=== PATIENT | female | born 2000 | race African-American/Black ===

== ENCOUNTER 2019-04-05 03:55 | Emergency (ER) | payer SELFPAY ==
[~2019-04-05] VITALS: Ht 162.6 cm; Wt 59.9 kg
[2019-04-05] MEDS ORDERED: fentaNYL PF VIAL 100 MCG/2 ML VIAL IV ONE (04:45)
[2019-04-05 04:46] LABS: BASO % 0 % (0-3); EOS # 0.1 x10^3/uL (0.0-0.7); EOS % 1 % (0-3); HEMATOCRIT 35.3 % (36.0-47.0); HEMOGLOBIN 11.7 g/dL (12.0-15.5); LYMPH # 3.2 x10^3/uL (1.0-4.8); LYMPH % 34 % (24-48); MEAN CORPUSCULAR HEMOGLOBIN 30 pg (25-35); MEAN CORPUSCULAR HGB CONC 33 g/dL (31-37); MEAN CORPUSCULAR VOLUME 92 fL (79-100); MONO # 0.7 x10^3/uL (0.0-1.1); MONO % 7 % (0-9); NEUT # 5.4 x10^3uL (1.8-7.7); NEUT % 58 % (31-73); PLATELET COUNT 201 x10^3/uL (140-400); RED BLOOD COUNT 3.85 x10^6/uL (3.50-5.40); WHITE BLOOD COUNT 9.3 x10^3/uL (4.0-11.0)
[2019-04-05] MEDS ORDERED: IV NORMAL SALINE 1000ML BAG 1,000 ML IV ONE (05:00)
[2019-04-05 05:04] LABS: CALCIUM 9.2 mg/dL (8.5-10.1); CREATININE 0.7 mg/dL (0.6-1.0); GFR 106.7; POTASSIUM 3.9 mmol/L (3.5-5.1)
[2019-04-05 05:09] LABS: ALBUMIN 3.1 g/dL (3.4-5.0); ALBUMIN/GLOBULIN RATIO 0.7 (1.0-1.7); TOTAL BILIRUBIN 0.1 mg/dL (0.2-1.0); TOTAL PROTEIN 7.3 g/dL (6.4-8.2)
--- NOTE | 2019-04-05 05:33 | PHYS DOC ---
Past Medical History Past Medical History: No Pertinent History (ZAIN WELLS MD) Past Surgical History: No Surgical History (ZAIN WELLS MD) Alcohol Use: None Drug Use: None (ZAIN WELLS MD) Adult General Chief Complaint Chief Complaint: ABDOMINAL PAIN IN HPI HPI Patient is a 18 year old f p/w ruq /epigastric pain.radiates to chest went to [facility] had neg PE study on friday. pain got better, it came back tonight after eating a gyro. she threw it up pain now severe sharp radiates to back as well. pt is 14 weeks pregannt, no lower abdo pain, no vaginal bleeding or discharge. no fever PT had neg u/a at the outside hospital as well. (ZAIN WELLS MD) Review of Systems Review of Systems Constitutional: Denies fever or chills [] Eyes: Denies change in visual acuity, redness, or eye pain [] HENT: Denies nasal congestion or sore throat [] Respiratory: Denies cough or shortness of breath [] Cardiovascular: No additional information not addressed in HPI [] Integument: Denies rash or skin lesions [] Neurologic: Denies headache, focal weakness or sensory changes [] Endocrine: Denies polyuria or polydipsia [] All other systems were reviewed and found to be within normal limits, except as documented in this note. (ZAIN WELLS MD) Current Medications Current Medications Current Medications Medications (Trade) Dose Ordered Sig/Quinn Start Time Stop Time Status Last Admin Dose Admin Fentanyl Citrate (Fentanyl 2ml Vial) 50 mcg 1X ONCE 04/05/19 04:45 04/05/19 04:46 DC 04/05/19 05:06 50 MCG Sodium Chloride 1,000 ml @ 1,000 mls/hr 1X ONCE 04/05/19 05:00 04/05/19 05:59 DC 04/05/19 05:06 1,000 MLS/HR (REJI SMITH MD) Allergies Allergies Allergies Coded Allergies Type Severity Reaction Last Updated Verified No Known Drug Allergies 04/05/19 No (REJI SMITH MD) Physical Exam Physical Exam Constitutional: Well developed, well nourished,moderate distress, pt is sweaty and appears uncomfortable HENT: Normocephalic, atraumatic, bilateral external ears normal, oropharynx moist, no oral exudates, nose normal. [] Eyes: PERRLA, EOMI, conjunctiva normal, no discharge. [] Neck: Normal range of motion, no tenderness, supple, no stridor. [] Cardiovascular:Heart rate regular rhythm, no murmur [] Lungs & Thorax: Bilateral breath sounds clear to auscultation [] Abdomen: Bowel sounds normal, soft, ruq ttp and epigastric ttp Skin: Warm, dry, no erythema, no rash. [] Back: No tenderness, no CVA tenderness. [] Extremities: No tenderness, no cyanosis, no clubbing, ROM intact, no edema. [] Neurologic: Alert and oriented X 3, normal motor function, normal sensory function, no focal deficits noted. [] Psychologic: Affect normal, judgement normal, mood normal. [] (ZAIN WELLS MD) Current Patient Data Vital Signs Vital Signs Date Time Temp Pulse Resp B/P (MAP) Pulse Ox O2 Delivery O2 Flow Rate FiO2 04/05/19 05:43 60 107/58 (74) 100 Room Air 04/05/19 04:03 97.4 15 97.4 (REJI SMITH MD) Lab Values Laboratory Tests Test 04/05/19 04:35 White Blood Count 9.3 x10^3/uL (4.0-11.0) Red Blood Count 3.85 x10^6/uL (3.50-5.40) Hemoglobin 11.7 g/dL (12.0-15.5) L Hematocrit 35.3 % (36.0-47.0) L Mean Corpuscular Volume 92 fL (79-100) Mean Corpuscular Hemoglobin 30 pg (25-35) Mean Corpuscular Hemoglobin Concent 33 g/dL (31-37) Red Cell Distribution Width 14.0 % (11.5-14.5) Platelet Count 201 x10^3/uL (140-400) Neutrophils (%) (Auto) 58 % (31-73) Lymphocytes (%) (Auto) 34 % (24-48) Monocytes (%) (Auto) 7 % (0-9) Eosinophils (%) (Auto) 1 % (0-3) Basophils (%) (Auto) 0 % (0-3) Neutrophils # (Auto) 5.4 x10^3uL (1.8-7.7) Lymphocytes # (Auto) 3.2 x10^3/uL (1.0-4.8) Monocytes # (Auto) 0.7 x10^3/uL (0.0-1.1) Eosinophils # (Auto) 0.1 x10^3/uL (0.0-0.7) Basophils # (Auto) 0.0 x10^3/uL (0.0-0.2) Sodium Level 139 mmol/L (136-145) Potassium Level 3.9 mmol/L (3.5-5.1) Chloride Level 102 mmol/L (98-107) Carbon Dioxide Level 26 mmol/L (21-32) Anion Gap 11 (6-14) Blood Urea Nitrogen 11 mg/dL (7-20) Creatinine 0.7 mg/dL (0.6-1.0) Estimated GFR (Cockcroft-Gault) 106.7 BUN/Creatinine Ratio 16 (6-20) Glucose Level 124 mg/dL (70-99) H Calcium Level 9.2 mg/dL (8.5-10.1) Total Bilirubin 0.1 mg/dL (0.2-1.0) L Aspartate Amino Transferase (AST) 18 U/L (15-37) Alanine Aminotransferase (ALT) 22 U/L (14-59) Alkaline Phosphatase 45 U/L (46-116) L Total Protein 7.3 g/dL (6.4-8.2) Albumin 3.1 g/dL (3.4-5.0) L Albumin/Globulin Ratio 0.7 (1.0-1.7) L Lipase 170 U/L (73-393) Laboratory Tests 04/05/19 04:35 Laboratory Tests 04/05/19 04:35 (REJI SMITH MD) EKG EKG [] (ZAIN WELLS MD) Radiology/Procedures Radiology/Procedures [] (ZAIN WELLS MD) Course & Med Decision Making Course & Med Decision Making Pertinent Labs and Imaging studies reviewed. (See chart for details) []18 yo f 14 weeks p/w ruq pain. had neg PE study at outside hosptial eval for biliary process. u/s pelvis: shows intrauterine estimated gestational age of 14 weeks and 3 days positive heartbeat. Maternal ovaries are obscured. Lab interpretation looked essentially normal (ZAIN WELLS MD) Course & Med Decision Making Abdominal ultrasound reported normal gallbladder and intrauterine at 14 weeks and 2 days without abnormal finding. Patient felt better after treatment given earlier in ER. Plan discharge patient home with diagnosis of abdominal pain in and nausea and vomiting. (REJI SMITH MD) Dragon Disclaimer Dragon Disclaimer This electronic medical record was generated, in whole or in part, using a voice recognition dictation system. (ZAIN WELLS MD) Departure Departure Impression: Primary Impression: Abdominal pain during Additional Impression: Nausea and vomiting Disposition: HOME, SELF-CARE (At 0617) Condition: IMPROVED Referrals: NO PCP (PCP) Patient Instructions: Abdominal Pain During , Diet - Hyperemesis Gravidarum, Hyperemesis Gravidarum Additional Instructions: Drink plenty of liquids Follow-up with your primary care physician in 3-5 days Return to ER if not getting better Scripts Ondansetron Hcl (ZOFRAN) 4 Mg Tablet 1 TAB PO PRN Q6-8HRS for nausea, #12 TAB Prov: REJI SMITH MD 04/05/19 Problem Qualifiers Primary Impression: Abdominal pain during Trimester: second trimester Qualified Codes: O26.892 - Other specified related conditions, second trimester; R10.9 - Unspecified abdominal pain Additional Impression: Nausea and vomiting Vomiting type: unspecified Vomiting Intractability: unspecified Qualified Codes: R11.2 - Nausea with vomiting, unspecified ZAIN WELLS MD Apr 05, 2019 05:32 REJI SMITH MD Apr 05, 2019 06:18
[2019-04-05 06:13] VITALS: BP 110/59
[2019-04-05] MEDS ORDERED: ONDA4TAB7 PO (06:21)
--- NOTE | 2019-04-05 23:50 | RAD ---
Roxi Wernerntosh INDICATION : Right upper quadrant pain COMPARISON: None TECHNIQUE: Multiple ultrasound images obtained through the abdomen in grayscale and color. FINDINGS: Liver: Mildly echogenic. This is a questionable finding but mild fatty infiltration not excluded. Gallbladder: Questionable minimal internal echoes dependently. Could be artifactual in nature but gallbladder sludge or tiny stones would be difficult to exclude given this finding. There is no evidence of large gallstones or gallbladder wall thickening. IVC: Partially distended at level of liver. Common Bile Duct: 2 mm. Pancreas: Only partially seen without definite adjacent fluid collection. Right Kidney: No hydronephrosis. IMPRESSION: 1. No evidence of right-sided hydronephrosis or dilation of the common bile duct. Electronically signed by: Raulito Horne MD (04/05/2019 11:47 PM) [facility]
--- NOTE | 2019-04-05 23:51 | RAD ---
INDICATION: Right-sided pain in COMPARISON: None. TECHNIQUE: Grayscale and color ultrasound images uterus and adnexa. Transabdominal images obtained FINDINGS: The maternal ovaries are obscured by bowel gas. Intrauterine gestational sac is identified with a pole. The cervix appears closed. The uterus measures approximately 136 x 100 mm. heartbeat is 160. The placenta is located posteriorly as well as along the right lateral and the anterior wall. Estimated gestational age is 14 weeks and 3 day with estimated due date of 10/01/2019. Estimated weight on the 48th percentile. IMPRESSION: 1. Intrauterine is identified with estimated gestational age of 14 weeks and 3 days with a positive heartbeat. Recommend routine anomaly screening at 18-22 weeks. 2. Maternal ovaries are obscured. Electronically signed by: Raulito Horne MD (04/05/2019 11:48 PM) [facility]
== END 2019-04-05 06:39 | disposition home or self-care (01) ==
LOC: ER 03:55
DX: O21.8 Other vomiting complicating pregnancy (principal); R10.11 Right upper quadrant pain; R10.13 Epigastric pain; Z3A.14 14 weeks gestation of pregnancy
CPT/HCPCS: 36415; 76705; 76815; 80053; 83690; 85025; 96361; 96374; 99285; J3010; J7030